=== PATIENT | female | born 1995 | race African-American/Black ===

== ENCOUNTER 2021-05-05 16:13 | Emergency (ER) | payer BC ==
[~2021-05-05] VITALS: Ht 157.5 cm; Wt 54.4 kg
--- NOTE | 2021-05-05 16:26 | NUR ---
Dr Silva at the bedside for MSE.
[2021-05-05] MEDS ORDERED: ETON68IM3 SQ (16:28)
[2021-05-05 17:03] LABS: BASOPHILS # (AUTO) 0.1 K/uL (0.0-8.0); BASOPHILS % (AUTO) 1.4 % (0.0-2.0); EOSINOPHILS # (AUTO) 0.2 K/uL (0.0-0.7); HEMATOCRIT 39.1 % (31.2-41.9); HEMOGLOBIN 12.9 g/dL (10.9-14.3); LYMPHOCYTES # (AUTO) 1.8 K/uL (20.0-40.0); LYMPHOCYTES % (AUTO) 47.6 % (20.5-51.5); MEAN CORPUSCULAR HEMOGLOBIN 28.4 uug (24.7-32.8); MEAN CORPUSCULAR HGB CONC 33 g/dL (32.3-35.6); MEAN CORPUSCULAR VOLUME 86.2 fL (75.5-95.3); MONOCYTES # (AUTO) 0.8 K/uL (2.0-10.0); MONOCYTES % (AUTO) 19.5 % (0.0-11.0); NEUTROPHILS % (AUTO) 25.5 % (38.5-71.5); PLATELET COUNT (AUTO) 296 K/uL (179-408); RED BLOOD CELL COUNT(AUTO) 4.54 MIL/uL (3.63-4.92); WHITE BLOOD COUNT (AUTO) 3.9 K/uL (3.8-11.8)
[2021-05-05 17:07] LABS: CREATININE 0.8 mg/dL (0.6-1.3); POTASSIUM 3.9 mmol/L (3.5-5.1)
[2021-05-05 17:13] LABS: BILIRUBIN,DIRECT 0.1 mg/dL (0.0-0.2); BILIRUBIN,TOTAL 0.1 mg/dL (0.2-1.0); TOTAL PROTEIN, SERUM 7.7 g/dL (6.4-8.2)
[2021-05-05 17:25] VITALS: BP 100/63
--- NOTE | 2021-05-05 17:25 | NUR ---
Patient discharged to home in stable condition. Written and verbal after care instructions given. Patient verbalizes understanding of instructions. Stressed follow up or return to ER for worsening s/s.
== END 2021-05-05 17:25 | disposition home or self-care (01) ==
LOC: ER 16:13
DX: Z51.89 Encounter for other specified aftercare (principal); Z83.3 Family history of diabetes mellitus; Z84.89 Family history of other specified conditions; Z79.3 Long term (current) use of hormonal contraceptives
CPT/HCPCS: 36415; 70030-TC; 85025; 85730; A4663